=== PATIENT | female | born 1970 | race Caucasian/White ===

== ENCOUNTER 2020-10-15 20:41 | Emergency (ER) | payer OTHER ==
[~2020-10-15 20:41] MED LIST: COUMADIN5 MG PO; LOVENOX80 MG/0.8 SC; NORCO 5-325 TA1 EACH PO; VYTORIN 10-201 EACH PO; WELLBUTRIN XL300 MG PO; ZOFRAN4 MG PO
[2020-10-15 21:29] LABS: EOSINOPHIL 1.9 % (0-5); HCT 34.7 % (37.0-47.0); HGB 11.8 g/dl (12.5-16.0); LYMPHOCYTE 36.6 % (15-48); MCH 32.1 pg (25.0-31.0); MCV 94.3 fL (78.0-100.0); MONOCYTE 6.6 % (0-12); MPV 9.7 fL (6.0-9.5); NEUTROPHIL 53.6 % (41-80); NRBC 0; PLT 267 K/uL (150-400); RBC 3.68 M/uL (4.20-5.40); RDW 12.4 % (11.5-14.0); WBC 5.7 K/uL (4.0-10.5)
[2020-10-15 21:59] LABS: ALBUMIN 4.2 g/dL (3.4-5.0); BILIRUBIN - TOTAL 0.4 mg/dL (0.2-1.0); BUN/CREAT RATIO (CALC) 20.5 RATIO; CREATININE 0.83 mg/dL (0.51-0.95); GLOBULIN (CALCULATION) 2.7 g/dL; TOTAL PROTEIN 6.9 g/dL (6.4-8.2)
[2020-10-15 22:07] LABS: PRO-BNP 47 pg/mL (<125)
== END 2020-10-15 23:55 | disposition home or self-care (01) ==
LOC: FER 20:41
PROVIDERS: Emergency Medicine
DX: R07.89 Other chest pain (principal); I45.10 Unspecified right bundle-branch block; Z82.49 Family history of ischemic heart disease and other diseases of the circulatory system
CPT/HCPCS: 36415; 71045; 80053; 83690; 83880; 84484; 85025; 85379; 93005; J2405